=== PATIENT | female | born 1955 | race Caucasian/White ===

== ENCOUNTER 2019-11-02 12:29 | Emergency (ER) | payer OTHER ==
[~2019-11-02] VITALS: Ht 165.1 cm; Wt 86.2 kg
[~2019-11-02 12:29] MED LIST: CALCITRIOL0.25 MCG PO; HYZAAR 100-121 UDTAB PO; LEVAQUIN750 MG PO; LIPITOR40 MG PO; LYRICA150 MG PO; SYNTHROID150 MCG PO
[2019-11-02] MEDS ORDERED: COZAAR100 MG (12:45)
[2019-11-02] MEDS ORDERED: AMLODIPINE-OLM1 EAC2 (12:45)
== END 2019-11-02 16:55 | disposition home or self-care (01) ==
LOC: ER 12:29
DX: R10.11 Right upper quadrant pain (principal); R10.31 Right lower quadrant pain

== ENCOUNTER 2020-08-08 08:06 | Day surgery (SDC) | payer OTHER ==
[~2020-08-08 08:06] MED LIST changes: +AMILODIPINE PO; +AMLODIPINE-OLM1 EAC2; +COZAAR100 MG; +COZAAR100 MG PO; +PAMELOR25 MG PO; +[UNRECOGNIZED DRUG - OTHER] PO
== END 2020-08-08 16:01 | disposition home or self-care (01) ==
LOC: CIR.AMB 08:06
PROVIDERS: ATTEND Urology
DX: N20.0 Calculus of kidney (principal); Z20.822 Contact with and (suspected) exposure to COVID-19

== ENCOUNTER 2020-08-15 21:36 | Emergency (ER) | payer OTHER ==
[~2020-08-15] VITALS: Ht 162.6 cm; Wt 88.9 kg
[2020-08-15] MEDS ORDERED: PRAVASTATIN SOD40 MG (22:02)
== END 2020-08-16 12:53 | disposition home or self-care (01) ==
LOC: ER 21:36
DX: G89.18 Other acute postprocedural pain (principal); R10.2 Pelvic and perineal pain; R11.0 Nausea; N13.2 Hydronephrosis with renal and ureteral calculous obstruction

== ENCOUNTER 2020-12-19 07:33 | Day surgery (SDC) | payer OTHER ==
[~2020-12-19 07:33] MED LIST changes: +PRAVASTATIN SOD40 MG
== END 2020-12-19 16:25 | disposition home or self-care (01) ==
LOC: CIR.AMB 07:33
PROVIDERS: ATTEND Urology
DX: N20.0 Calculus of kidney (principal); Z20.822 Contact with and (suspected) exposure to COVID-19

== ENCOUNTER 2021-01-27 07:41 | Outpatient (CLI) | payer OTHER | END 2021-01-27 07:47 | disposition home or self-care (01) | LOC: TOM 07:41 | PROVIDERS: ATTEND Urology | DX: N20.0 Calculus of kidney (principal) ==

== ENCOUNTER 2021-04-03 07:08 | Outpatient (CLI) | payer OTHER | END 2021-04-03 07:13 | disposition home or self-care (01) | LOC: TOM 07:08 | PROVIDERS: ATTEND Urology | DX: N20.0 Calculus of kidney (principal) ==

== ENCOUNTER 2021-04-03 07:39 | Outpatient (CLI) | payer OTHER | END 2021-04-03 07:50 | disposition home or self-care (01) | LOC: LAB 07:39 | DX: N20.0 Calculus of kidney (principal) ==